=== PATIENT | male | born 1990 | race Caucasian/White ===

== ENCOUNTER 2018-07-09 05:40 | Day surgery (SDC) | payer OTHER ==
[2018-07-01 10:27] LABS: ABSOLUTE EOSINOPHILS # (AUTO) 0.1 10^3/uL (0.0-0.6); ABSOLUTE LYMPHOCYTES (AUTO) 1.7 10^3/uL (0.5-4.7); ABSOLUTE MONOCYTES (AUTO) 0.4 10^3/uL (0.1-1.4); ABSOLUTE NEUT (AUTO) 4.2 10^3/uL (1.7-8.2); BASOPHILS % (AUTO) 0.7 % (0-2); EOSINOPHILS % (AUTO) 1.1 % (0-6); HEMATOCRIT 44.9 % (37.9-51.0); HEMOGLOBIN 15.7 g/dL (13.5-17.0); MEAN CORPUSCULAR HEMOGLOBIN 29.9 pg (27.0-33.4); MEAN CORPUSCULAR HGB CONC 35.1 g/dL (32.0-36.0); MEAN CORPUSCULAR VOLUME 85 fl (80-97); MONOCYTES % (AUTO) 6.4 % (3-13); PLATELET COUNT 316 10^3/uL (150-450); RED BLOOD COUNT 5.27 10^6/uL (4.35-5.55); RED CELL DISTRIBUTION WIDTH 12.5 % (11.5-14.0); SEGMENTED NEUTROPHILS % (AUTO) 64.8 % (42-78); TOTAL CELLS COUNTED % (AUTO) 100 %; WHITE BLOOD COUNT 6.4 10^3/uL (4.0-10.5)
--- NOTE | 2018-07-01 10:27 | EKG REPORT ---
SEVERITY:- NORMAL ECG - SINUS RHYTHM : Confirmed by: Page Lozoya MD 01-Jul-2018 10:25:57
[2018-07-01 10:47] LABS: ANION GAP 12 (5-19); BLOOD UREA NITROGEN 14 mg/dL (7-20); CARBON DIOXIDE 31 mmol/L (22-30); CHLORIDE 100 mmol/L (98-107); GLUCOSE 88 mg/dL (75-110); POTASSIUM 4.6 mmol/L (3.6-5.0); SODIUM 142.6 mmol/L (137-145)
--- NOTE | 2018-07-01 11:05 | RADIOLOGY REPORT (SQ) ---
EXAM DESCRIPTION: CHEST PA/LATERAL COMPLETED DATE/TIME: 07/01/2018 10:13 am REASON FOR STUDY: PRE-OP COMPARISON: None. EXAM PARAMETERS: NUMBER OF VIEWS: two views TECHNIQUE: Digital Frontal and Lateral radiographic views of the chest acquired. RADIATION DOSE: NA LIMITATIONS: none FINDINGS: LUNGS AND PLEURA: No opacities, masses or pneumothorax. No pleural effusion. MEDIASTINUM AND HILAR STRUCTURES: No masses or contour abnormalities. HEART AND VASCULAR STRUCTURES: Heart normal size. No evidence for failure. BONES: No acute findings. HARDWARE: None in the chest. OTHER: No other significant finding. IMPRESSION: NO SIGNIFICANT RADIOGRAPHIC FINDING IN THE CHEST. TECHNICAL DOCUMENTATION: JOB ID: [id number] [employer]- All Rights Reserved Reading location - IP/workstation name: [email or web address]
[~2018-07-09 05:40] MED LIST: CEFAZOLIN 2 GM/D5W RTU 2 GM/50 ML RTUPB IV ONE; CEFAZOLIN 2 GM/D5W RTU 2 GM/50 ML RTUPB IV PRN; LACTATED RINGERS 1000 ML IV PRN; LIDOCAINE 0.5% INJ-PF (5 MG/ML) 50 ML SDV SUBCUT PRN
[2018-07-09] MEDS ORDERED: MIDAZOLAM 2 MG/2 ML INJ ONE (07:11)
[2018-07-09] MEDS ORDERED: FENTANYL CITRATE INJ/PF 250 MCG/5 ML AMPULE ONE (07:11)
[2018-07-09] MEDS ORDERED: EPHEDRINE SULFATE INJ 50 MG/1 ML AMPULE ONE (07:11)
[2018-07-09] MEDS ORDERED: PROPOFOL INJ 200 MG/20 ML VIAL IV ONE (07:11)
[2018-07-09] MEDS ORDERED: ACETAMINOPHEN 1,000 MG/100 ML RTUPB IV ONE (07:11)
[2018-07-09] MEDS ORDERED: BACITRACIN INJ 50,000 UNIT VIAL ONE (07:24)
[2018-07-09] MEDS ORDERED: BUPIVACAINE HCL 0.5 % INJ/PF 30 ML SDV ONE (07:24)
[2018-07-09] MEDS ORDERED: BUPIVACAINE INJ/PF LIPOSOME/PF 266 MG/20 ML SDV ONE (07:24)
[2018-07-09] MEDS ORDERED: THROMBIN (BOVINE) 5000 UNIT EPITAXIS KIT ONE (07:24)
[2018-07-09] MEDS ORDERED: PROMETHAZINE HCL INJ 25 MG/1 ML VIAL IV PRN ×2 (08:12)
[2018-07-09] MEDS ORDERED: FENTANYL CITRATE INJ/PF 100 MCG/2 ML AMPUL IV PRN ×3 (08:12)
[2018-07-09] MEDS ORDERED: MEPERIDINE HCL/PF INJ 25 MG/1 ML DISP.SYRIN IV PRN (08:12)
[2018-07-09] MEDS ORDERED: OXYCODONE-ACETAMINOPHEN 5-325 MG TABLET PO PRN ×2 (08:12)
[2018-07-09] MEDS ORDERED: DIPHENHYDRAMINE HCL 50 MG/ML VIAL IV PRN (08:12)
[2018-07-09] MEDS ORDERED: MEPERIDINE HCL/PF INJ 25 MG/1 ML DISP.SYRIN ONE (09:31)
--- NOTE | 2018-07-09 09:48 | OPERATIVE REPORT E ---
Operative Report NAME: JOBY ALANIS : 1990 AGE: 27Y DATE OF SURGERY: 07/09/2018 ROOM: PREOPERATIVE DIAGNOSIS: L5-S1 herniated nucleus pulposus, L5-S1 central stenosis, degenerative disk disease, back pain, radiculitis. POSTOPERATIVE DIAGNOSIS: L5-S1 herniated nucleus pulposus, L5-S1 central stenosis, degenerative disk disease, back pain, radiculitis. OPERATION: L5 partial laminectomy, L5-S1 right-sided microdiskectomy. SURGEON: KAYODE MENDIOLA M.D. DISTRIBUTION A CLASS LINEMAN: Eder Palencia PA-C ANESTHESIA: General endotracheal intubation. ESTIMATED BLOOD LOSS: 75 mL. INDICATIONS: The patient is a 27-year-old male who has failed conservative management, and after discussion with the patient of the risks, indications, and alternatives, including failure of epidural steroid injections and the need for possible surgery again, the risk of recurrent disk herniation, the risk of infection, bleeding, damage to nerves and blood vessels, the risk of dural tear and spinal headache, the risk of continued back pain, the patient understood these risks and wished to pursue the option of surgical intervention. OPERATIVE TECHNIQUE: The patient was brought into the room, placed under anesthesia, had received 2 g of Ancef within 1 hour of cut time, had SCDs and a warm blanket placed on him. He was placed on the radiolucent table with a Fei frame attachment. The Fei frame was turned up to open up the interspaces posteriorly. A surgical time out was performed and the skin was marked using lateral C-arm fluoroscopy to david the L5-S1 interspace, marking the skin in the midline, and after completion of prepping and draping, having CellSaver, a midline incision was carried down through the skin measuring approximately 1.5 inches. Dissection was carried down to the lumbar dorsal fascia. The lumbar dorsal fascia was incised on both sides of the spinous processes at L5-S1. Dissection was carried down to the lamina of L5-S1. The posterior interspace was marked with a Tucker and lateral C-arm fluoroscopy was used to verify that level. Upon verification of that level the spinous process of L5 was resected and then the microscope was brought in, and through the assistance of Eder Palencia under the microscope, partial laminectomy was performed. The bur and the Kerrisons were used to carry out a partial laminectomy and the ligamentum flavum was resected on the right side. The dura was identified and the nerve roots were retracted medially, and there was noted to be a sizeable disk herniation. The spinal needle was placed into the disk space. C-arm fluoroscopy was obtained to verify that level. Upon verification of that level and the position of the needle, an annulotomy was performed under the microscope and many small and large pieces of disk were resected. Then the dura was found to rest more ventrally. The disk space was irrigated as well to make sure there were no loose pieces. Bipolar electrocautery was used to coagulate the small little epidural bleeders. Bone wax was also utilized to seal off some small little bone bleeders from the partial laminectomy site. Then, after that a Valsalva maneuver was performed by Anesthesia, noting no cerebrospinal fluid leakage and no epidural bleeders. The wound was irrigated with a liter of Bacitracin irrigation. After that the fascia was reapproximated with 0 Vicryl and then the deep and superficial soft tissues were infiltrated with 1.3% Exparel 20 mL mixed with 20 mL of 0.5% bupivacaine plain. Then, 2-0 Vicryl was used to close down the subcu and 3-0 Monocryl for running subcuticular closure. The wounds were dressed with Benzoin, Steri-Strips, and 4 x 4s. The patient tolerated the procedure well. Please note, this procedure could not have been done without the assistance of Eder Palencia working under the microscope and carrying out the diskectomy. The patient's condition is stable. The patient was then brought to the supine position, extubated, and brought to the recovery room. DICTATING PHYSICIAN: KAYODE MENDIOLA M.D. [id number] PHY#: [id number] ID: [id number] JOB#: [id number] ACCT: [id number] cc:KAYODE MENDIOLA M.D. >
[2018-07-09] MEDS ORDERED: FENTANYL CITRATE INJ/PF 100 MCG/2 ML AMPUL ONE (09:51)
[2018-07-09] MEDS ORDERED: HYDROCODONE/ACETAMINOPHEN 5-325 MG TABLET ONE (10:32)
[2018-07-09] MEDS ORDERED: METHOCARBAMOL 1,000 MG in DEXTROSE 5%-WATER 100 ML IV ONE (11:00)
--- NOTE | 2018-07-09 11:22 | RADIOLOGY REPORT (SQ) ---
EXAM DESCRIPTION: NO CHG FLUORO; SPINE SINGLE VIEW COMPLETED DATE/TIME: 07/09/2018 11:03 am REASON FOR STUDY: LUMBAR DISKECTOMY ASST WITH FLUORO IN OR COMPARISON: None. FLUOROSCOPY TIME: Not recorded here 2 Images saved to PACS RADIATION DOSE: 2.18 mGy LIMITATIONS: None. PROCEDURE: Lumbar discectomy. FINDINGS: Images show a needle directed to the L5-S1 disc space. IMPRESSION: Lumbar discectomy. Refer to operative note for further information. COMMENT: PQRS 6045F: Fluoroscopy time of the procedure is documented in the report. TECHNICAL DOCUMENTATION: JOB ID: [id number] [employer]- All Rights Reserved Reading location - IP/workstation name: [email or web address]
--- NOTE | 2018-07-09 11:22 | RADIOLOGY REPORT (SQ) ---
EXAM DESCRIPTION: NO CHG FLUORO; SPINE SINGLE VIEW COMPLETED DATE/TIME: 07/09/2018 11:03 am REASON FOR STUDY: LUMBAR DISKECTOMY ASST WITH FLUORO IN OR COMPARISON: None. FLUOROSCOPY TIME: Not recorded here 2 Images saved to PACS RADIATION DOSE: 2.18 mGy LIMITATIONS: None. PROCEDURE: Lumbar discectomy. FINDINGS: Images show a needle directed to the L5-S1 disc space. IMPRESSION: Lumbar discectomy. Refer to operative note for further information. COMMENT: PQRS 6045F: Fluoroscopy time of the procedure is documented in the report. TECHNICAL DOCUMENTATION: JOB ID: [id number] [employer]- All Rights Reserved Reading location - IP/workstation name: [email or web address]
[2018-07-09 12:47] VITALS: BP 128/79
[2018-07-09] MEDS ORDERED: ROCURONIUM BROMIDE INJ 50 MG/5 ML VIAL IV ONE (13:43)
[2018-07-09] MEDS ORDERED: LIDOCAINE 2% INJ-PF (20 MG/ML) 2 ML AMPUL ONE (13:43)
[2018-07-09] MEDS ORDERED: GLYCOPYRROLATE 1 MG/5 ML SYRINGE ONE (13:43)
[2018-07-09] MEDS ORDERED: NEOSTIGMINE METHYLSULFATE 10 MG/10 ML VIAL ONE (13:43)
[2018-07-09] MEDS ORDERED: SUCCINYLCHOLINE CHLORIDE INJ 200 MG/10 ML VIAL ONE (13:43)
[2018-07-09] MEDS ORDERED: ONDANSETRON HCL INJ/PF 4 MG/2 ML SDV ONE (13:43)
[2018-07-09] MEDS ORDERED: DEXAMETHASONE SOD PHOSPHATE INJ 4 MG/1 ML VIAL ONE (13:43)
== END 2018-07-09 11:40 | disposition home or self-care (01) ==
LOC: OROUT 05:40
PROVIDERS: ATTEND Orthopaedic Surgery
DX: M54.5 Low back pain (principal); M51.36 Other intervertebral disc degeneration, lumbar region; M51.16 Intervertebral disc disorders with radiculopathy, lumbar region; M48.061 Spinal stenosis, lumbar region without neurogenic claudication; Z01.818 Encounter for other preprocedural examination; Z86.14 Personal history of Methicillin resistant Staphylococcus aureus infection; Z87.891 Personal history of nicotine dependence
CPT/HCPCS: 93005; 93010; 63047; 36415; 85025; 80048; 87070; 71046; 72020; C1713; J2250; J3490 ×7; J1100; J3010 ×2; J2175; J2800; J0330; J2405; J2704; J0690; J0131; C9290; 630

== ENCOUNTER 2019-10-27 15:53 | Emergency (ER) | payer BC, OTHER ==
[2019-10-27 16:01] VITALS: BP 139/78
[2019-10-27] MEDS ORDERED: IBUPROFEN 800 MG TABLET PO ONE (16:08)
--- NOTE | 2019-10-27 16:10 | ER Document Report ---
HPI - HPI Time Seen by Provider: 10/27/19 16:03 Pain Level: 5 Notes: 28-year-old male presents to the emergency room for evaluation of right hand and wrist pain after he fell onto a hard surface approximately 4 days ago while playing with a ball outside. Denies any head trauma or change in level consciousness. Reports pain is 3 out of 5, throbbing sharp and constant. Did take [id number]-[id number] ibuprofen with some relief this morning. Reports pain with movement of his wrist. Denies previous injury to hand or wrist. Denies any other injury. Denies fevers, chills, chest pain,palpitations, shortness of breath, dyspnea, nausea, vomiting, diarrhea, abdominal pain, hematuria,blurred vision, double vision, loss of vision, speech changes, LH, dizziness, syncope, headaches, wheezing, ST, URI, neck pain, weakness, bowel or bladder dysfunction, saddle anesthesia, numbness or tingling in bilateral upper or lower extremities equally, muscle paralysis, weakness in bilateral upper or lower extremities equally or rash. Denies IV drug use. MEDICATIONS: I agree with the patient medications as charted by the RN. ALLERGIES: I agree with the allergies as charted by the RN. PAST MEDICAL HISTORY/PAST SURGICAL HISTORY: Reviewed and agree as charted by RN. SOCIAL HISTORY: Reviewed and agree as charted by RN. FAMILY HISTORY: No significant familial comorbid conditions directly related to patient complaint EXAM: Reviewed vital signs as charted by RN. REVIEW OF SYSTEMS:reviewed vital signs by RN CONSTITUTIONAL : Denies fever, chills, or sweats. Denies recent illness. EENT: Denies eye, ear, throat, or mouth pain or symptoms. Denies nasal or sinus congestion or discharge. Denies throat, tongue, or mouth swelling or difficulty swallowing. CARDIOVASCULAR: Denies chest pain. Denies palpitations or racing or irregular heart beat. Denies ankle edema. RESPIRATORY: Denies cough, cold, or chest congestion. Denies shortness of breath, difficulty breathing, or wheezing. GASTROINTESTINAL: Denies abdominal pain or distention. Denies nausea, vomiti ng, or diarrhea. Denies blood in vomitus, stools, or per rectum. Denies black, tarry stools. Denies constipation. GENITOURINARY: Denies difficulty urinating, painful urination, burning, frequency, blood in urine, or discharge. MUSCULOSKELETAL: Reports right hand and wrist pain. denies back or neck pain or stiffness. Denies joint pain or swelling. SKIN: Denies rash, lesions or sores. HEMATOLOGIC : Denies easy bruising or bleeding. LYMPHATIC: Denies swollen, enlarged glands. NEUROLOGICAL: Denies confusion or altered mental status. Denies passing out or loss of consciousness. Denies dizziness or lightheadedness. Denies headache. Denies weakness or paralysis or loss of use of either side. Denies problems with gait or speech. Denies sensory loss, numbness, or tingling. Denies seizures. PSYCHIATRIC: Denies anxiety or stress. Denies depression, suicidal ideation, or homicidal ideation. ALL OTHER SYSTEMS REVIEWED AND NEGATIVE. Dictation was performed using [employer] voice recognition software PHYSICAL EXAMINATION: GENERAL: Well-appearing, well-nourished and in no acute distress. HEAD: Atraumatic, normocephalic. EYES: Pupils equal round and reactive to light, extraocular movements intact, sclera anicteric, conjunctiva are normal. ENT: Nares patent, oropharynx clear without exudates. Moist mucous membranes. NECK: Normal range of motion, supple without lymphadenopathy LUNGS: Breath sounds clear to auscultation bilaterally and equal. No wheezes rales or rhonchi. HEART: Regular rate and rhythm without murmurs ABDOMEN: Soft, nontender, nondistended abdomen. No guarding, no rebound. No masses appreciated. Musculoskeletal: Normal range of motion, no pitting or edema. No cyanosis. Noted right wrist pain with flexion, extension, inversion, eversion of wrist. digits in right and left with full aprom.. Low Pressure Boiler Tender + 2 BUE equally. Snuffbox tenderness positive on right. radial pulses + 2 BUE equally. Negative kanavels sign. No open wounds or drainage from wrist. No vascular compromise.No body crepitus or focal area of TTP. Limited ROM with flexion, extension, ulnar/radial deviation . Motor and sensory function of ulnar, radial, medial nerves intact bilaterally and equally. NEUROLOGICAL: Cranial nerves grossly intact. Normal speech, normal gait. Normal sensory, motor exams PSYCH: Normal mood, normal affect. SKIN: Warm, Dry, normal turgor, no rashes or lesions noted. - MUSCULOSKELETAL Musculoskeletal: REPORTS: Extremity pain Past Medical History - General Information source: Patient - Social History Smoking Status: Current Every Day Smoker Frequency of alcohol use: Heavy Drug Abuse: None Family History: Reviewed & Not Pertinent - Past Medical History Cardiac Medical History: Denies: Hx Coronary Artery Disease, Hx Heart Attack, Hx Hypertension Pulmonary Medical History: Reports: Hx Asthma - Seasonal asthma, no treatments needed in 6 years, Hx Bronchitis, Hx Pneumonia Denies: Hx COPD Neurological Medical History: Denies: Hx Cerebrovascular Accident, Hx Seizures Musculoskeletal Medical History: Reports Hx Arthritis - Back and bilateral knees - Immunizations Hx Diphtheria, Pertussis, Tetanus Vaccination: Yes Vertical Provider Document - CONSTITUTIONAL Agree With Documented VS: Yes Exam Limitations: No Limitations General Appearance: WD/WN - INFECTION CONTROL TRAVEL OUTSIDE OF THE [place] IN LAST 30 DAYS: No Course - Re-evaluation Re-evalutation: 10/27/19 16:10 Afebrile vital stable no distress. Nurses notes reviewed. X-ray of right hand and wrist negative for acute fracture dislocation or foreign body. Will place in a cock-up splint, apply heat 20 minutes on 20 minutes off several times a day. Alternate between Tylenol and ibuprofen for pain control. After performing a Medical Screening Examination, I estimate there is LOW risk for OPEN FRACTURE, COMPARTMENT SYNDROME, DEEP VENOUS THROMBOSIS, ACUTE TENDON RUPTURE, or NEUROVASCULAR INJURY thus I consider the discharge disposition reasonable. I have reevaluated this patient multiple times and no significant life threatening changes are noted. The patient and I have discussed the diagnosis and risks, and we agree with discharging home to closely follow-up with their primary doctor or the referral orthopedist with the understanding that symptoms and presentations can change. We also discussed returning to the Emergency Department immediately if new or worsening symptoms occur. We have discussed the symptoms which are most concerning (e.g., changing or worsening pain, numbness, weakness) that necessitate immediate return 10/27/19 17:54 - Vital Signs Vital signs: Temp Pulse Resp BP Pulse Ox 98.4 F 72 16 139/78 H 99 10/27/19 15:58 10/27/19 15:58 10/27/19 15:58 10/27/19 15:58 10/27/19 15:58 Discharge - Discharge Clinical Impression: Sprain of right hand, Right wrist pain Condition: Stable Disposition: HOME, SELF-CARE Instructions: Sprain ([facility]), Wrist Sprain ([facility]) Additional Instructions: Your xrays were negative. apply heat 20 min on, 20 min off several times a day. follow up with benefit specialist and pcp as needed Return immediately for any new or worsening symptoms. Follow up with primary care provider, call tomorrow to make followup appointment. Forms: Return to Work Referrals: BARRON ALFARO, [Primary Care Provider] - Follow up as needed STACY PUGH MD [ACTIVE STAFF] - Follow up as needed
--- NOTE | 2019-10-27 17:10 | RADIOLOGY REPORT (SQ) ---
EXAM DESCRIPTION: HAND RIGHT 3 VIEWS IMAGES COMPLETED DATE/TIME: 10/27/2019 4:19 pm REASON FOR STUDY: hand pain s/p fall x 4 days ago, + swelling COMPARISON: None. EXAM PARAMETERS: NUMBER OF VIEWS: Three views. TECHNIQUE: AP, lateral and oblique radiographic images acquired of the right hand. LIMITATIONS: None. FINDINGS: MINERALIZATION: Normal. BONES: No acute fracture or dislocation. No worrisome bone lesions. JOINTS: No effusions. SOFT TISSUES: No soft tissue swelling. No foreign body. OTHER: No other significant finding. IMPRESSION: NEGATIVE STUDY OF THE RIGHT HAND. NO RADIOGRAPHIC EVIDENCE OF ACUTE INJURY. TECHNICAL DOCUMENTATION: JOB ID: [id number] 2010 [employer]- All Rights Reserved Reading location - IP/workstation name: [email or web address]
--- NOTE | 2019-10-27 17:10 | RADIOLOGY REPORT (SQ) ---
EXAM DESCRIPTION: WRIST RIGHT 3 VIEWS IMAGES COMPLETED DATE/TIME: 10/27/2019 4:19 pm REASON FOR STUDY: hand pain s/p fall x 4 days ago, + swelling COMPARISON: None. NUMBER OF VIEWS: Three views. TECHNIQUE: AP, lateral, and oblique radiographic images acquired of the right wrist. LIMITATIONS: None. FINDINGS: MINERALIZATION: Normal. BONES: No acute fracture or dislocation. Normal alignment. As best noted on the lateral image, none normal anatomic variant suggested near the base of the metacarpal bone dorsal aspect of the wrist bes t noted on the lateral image. SOFT TISSUES: No soft tissue swelling. No foreign body. OTHER: No other significant finding. IMPRESSION: 1. No acute osseous findings. If symptoms persist, follow-up examination for re-evalua tion suggested. TECHNICAL DOCUMENTATION: JOB ID: [id number] 2010 [employer]- All Rights Reserved Reading location - IP/workstation name: [email or web address]
== END 2019-10-27 18:37 | disposition home or self-care (01) ==
LOC: ER 15:53
DX: S63.91XA Sprain of unspecified part of right wrist and hand, initial encounter (principal); M25.531 Pain in right wrist; W18.30XA Fall on same level, unspecified, initial encounter; F17.200 Nicotine dependence, unspecified, uncomplicated
CPT/HCPCS: 99283